=== PATIENT | female | born 2000 | race Caucasian/White ===

== ENCOUNTER 2024-05-09 01:33 | Emergency (ER) | payer OTHER, MEDICAID ==
[2024-05-09] MEDS: Tetracaine HCl/PF 0.5% 4 ML Bottle EYERT ONE (02:10)
[2024-05-09] MEDS: Sulfacetamide 10% Ophth Soln 15 ML Bottle EYERT ONE (03:22)
== END 2024-05-09 03:26 | disposition home or self-care (01) ==
LOC: FB.ED 01:33
DX: S05.01XA Injury of conjunctiva and corneal abrasion without foreign body, right eye, initial encounter (principal); W20.8XXA Other cause of strike by thrown, projected or falling object, initial encounter
CPT/HCPCS: 99283; A9270-GY